=== PATIENT | female | born 2000 | race Caucasian/White ===

== ENCOUNTER 2024-01-22 23:09 | Emergency (ER) | payer OTHER, SELFPAY ==
[2024-01-22 23:49] VITALS: BP 111/63; PULSE 68; RESP 16; TEMP 36.7; O2SAT 97; BMI 22.7
[2024-01-23 02:19] VITALS: BP 129/72; PULSE 81; RESP 18; TEMP 36.8; O2SAT 99
--- NOTE | 2024-01-23 02:22 | PC.NURSE ---
pt is tearful but when she focuses she stops crying. pt has had this happen for 5 years every month she says she is in the ed. Pt is going for a 2nd consult. pt is bipolar and suffers from hormonal changes per pt.
[2024-01-23 02:25] VITALS: PULSE 81; TEMP 36.8; O2SAT 99
[2024-01-23 04:38] VITALS: BP 120/67; PULSE 82; RESP 19; TEMP 36.8; O2SAT 99
[2024-01-23 06:39] LABS: Hematocrit 40.4 % (37.0-47.0); Hemoglobin 14.7 g/dl (12.0-16.0); Mean Corpuscular HGB Conc 36.4 g/dl (31.0-35.0); Mean Corpuscular Hemoglobin 32.7 pg (27.0-33.0); Mean Platelet Volume 9.1 fL (9.4-12.3); Platelet Count 238 X10*3/uL (160-400); Red Blood Count 4.49 X10*6/uL (4.20-5.50); Red Cell Distribution Width 12.1 % (11.0-16.0); White Blood Count 8.9 X10*3/uL (4.8-10.8)
--- NOTE | 2024-01-23 06:39 | ED.GENADULT ---
HPI - General Adult General Chief complaint: Nausea/Vomiting/Diarrhea Stated complaint: flare up symptoms? Time Seen by Provider: 01/23/24 06:33 Source: patient Mode of arrival: ambulatory Limitations: no limitations History of Present Illness ED Provider: Mattie Howard PA-C HPI narrative: Patient is a 23 year old assigned female at with a history of anxiety presenting to the emergency department today with an anxiety flare. Patient states that she feels this way before her period starts and it is due in approximately 5 days. Patient states that haldol usually fixes this. Patient denies any dizziness, lightheadedness, abdominal pain, fever, chills, blurry vision, double vision, loss of vision, chest pain, difficulty breathing, shortness of breath, back pain, night sweats, pain with urination, increased urinary frequency, increased urinary urgency, blood in her urine or stool, syncope or a near syncopal episode, recent trauma or falls, bowel incontinence, bladder incontinence, or any other complaints at this time. Relieving factors: none Exacerbating factors: none Associated symptoms: nausea/vomiting Treatments prior to arrival: none Related Data Allergies Allergy/AdvReac Type Severity Reaction Status Date / Time No Known Allergies Allergy Verified 01/22/24 23:52 Review of Systems Constitutional: Constitutional: Reports no additional constitutional complaints, Denies chills, Denies fever(s) and Denies night sweats Eyes: Eyes: Reports no additional eye complaints, Denies blurry vision, Denies change in vision, Denies diplopia, Denies eye discharge, Denies loss of vision and Denies eye pain ENT: Denies dizziness Cardiovascular: Cardiovascular: Reports no additional cardiovascular complaints, Denies chest pain, Denies lightheadedness, Denies Loss of Consciousness and Denies dyspnea Respiratory: Respiratory: Reports no additional respiratory complaints and Denies dyspnea Gastrointestinal: Gastrointestinal: Reports no additional gastrointestinal complaints, Denies abdominal pain, Denies melena, Denies hematochezia, Denies change in bowel habits, Denies change in stool character, Reports nausea and Reports vomiting Genitourinary: Genitourinary: Denies hematuria, Denies urinary frequency, Denies dysuria, Denies urinary incontinence, Denies urinary hesitancy and Denies urinary urgency Musculoskeletal: Musculoskeletal: Reports no additional musculoskeletal complaints, Denies numbness and Denies tingling Neurologic: Denies dizziness, Denies loss of vision, Denies numbness and Denies tingling Psychiatric: Psychiatric: Reports anxiety Endocrine: Endocrine: Reports no additional endocrine complaints Hematologic/Lymphatic: Hematologic/Lymphatic: Reports no additional hematologic/lymphatic complaints Allergic/Immunologic: Allergic/Immunologic: Reports no additional allergic/immunologic complaints PMFSH Past Medical History Attestation statement: The following information was validated with the patient. Source: old records reviewed and nursing notes reviewed Social History Social History Advance Directives: No Advance Directives Information Provided: Yes Do you have a plan to hurt others: No Plan Physical Exam ED Vital Signs: Vital Signs - 24 hr 01/22/24 23:49 01/23/24 02:19 01/23/24 02:25 Temperature 98.1 F 98.3 F 98.3 F Pulse Rate 68 81 81 Respiratory Rate 16 18 Blood Pressure 111/63 129/72 Pulse Oximetry 97 99 99 Oxygen Delivery Method Room Air Room Air Room Air 01/23/24 04:38 01/23/24 06:55 01/23/24 08:15 Temperature 98.3 F 98.3 F Pulse Rate 82 99 63 Respiratory Rate 19 20 14 Blood Pressure 120/67 122/83 118/73 Pulse Oximetry 99 100 98 Oxygen Delivery Method Room Air Room Air Room Air 01/23/24 09:12 Temperature 98.3 F Pulse Rate 63 Respiratory Rate 16 Blood Pressure 118/73 Pulse Oximetry 99 Oxygen Delivery Method Room Air BMI result Body Mass Index 22.7 Const General: cooperative, no acute distress, alert and awake Nutritional Appearance: well nourished Orientation/consciousness: patient oriented x3 Limitations: no limitations [facility] Head: Yes normal to inspection and Yes atraumatic Ears: hearing grossly normal bilaterally and external ears normal General nose exam: Normal external nose present, no nasal discharge noted and no epistaxis Face and sinus: Yes normal facial exam, No abrasion and No laceration Mouth: Normal oral and palatal mucosa present, no drooling and no muffled voice Eyes General: appearance normal, both eyes and all related structures Periorbital: periorbital findings normal Eyelids: Yes eyelids normal Conjunctivae: conjunctivae normal Pupils: Equal, round and reactive pupils present EOM: EOMs intact bilaterally Neck Neck: Yes normal visual inspection, Yes full ROM and Yes no lymphadenopathy Chest Chest palpation & inspection: normal inspection of the chest Resp Effort & Inspection: normal respiratory effort and able to speak in complete sentences GI Inspection: Yes normal to inspection Neuro General: patient oriented x3 and moves all extremities Cranial nerves: Yes Equal, round and reactive pupils present Cognition (Neuro): normal cognition Extrem General: Yes normal to inspection, Yes full ROM and Yes capillary refill normal Psych Appearance: grossly normal Mental Status: mental status grossly normal Affect: normal affect Attitude: cooperative Thought process: Normal thought process present Thought content: Normal thought content present Insight: Good insight present (Psych) Medications Administered Discontinued Medications Generic Name Dose Route Start Last Admin Trade Name Freq PRN Reason Stop Dose Admin Haloperidol Lactate 5 mg 01/23/24 06:41 01/23/24 06:53 Haloperidol Lactate 5 Mg/Ml Vial IM 01/23/24 06:42 5 mg ONCE ONE Administration Sodium Chloride 1,000 mls @ 999 mls/hr 01/23/24 06:45 01/23/24 08:49 Ns IV 01/23/24 07:45 Infused .Q1H1M HAYDEE Infusion Medical Decision Making Medical Decision Making [facility] Narrative: Patient is a 23 year old assigned female at with a history of anxiety presenting to the emergency department today with increased anxiety, nausea, and vomiting. Patient's physical exam was unremarkable. Patient's blood work was unremarkable. Patient's urine showed no acute process. I explained my physical exam findings as well as all test results to the patient. I answered all questions asked by the patient. Patient received IV fluids and Haldol which she stated helped her symptoms significantly. I stressed the importance of the patient taking her medication as directed (either prescribed or as the over the counter packaging recommends). I stressed the importance of the patient following up with her primary care provider. I stressed the importance of the patient returning to the emergency department immediately if her symptoms were to worsen or if she were to develop any dizziness, shortness of breath, difficulty breathing, chest pain, blurry vision, loss of vision, nausea, vomiting, abdominal pain, fever, chills, back pain, or any other complaints. Patient verbalized agreement and understanding with this treatment plan and discharge. Differential Diagnosis Differential Diagnoses: The differential diagnosis associated with the presentation includes Anxiety Admission/Observation Consideration of admission/observation: Escalation of care including admission/observation considered Patient would have been admitted to the hospital had her work up had any findings where hospital admission was appropriate and her clinical presentation warranted hospital admission. Lab Data [facility] Lab Attestation statement: I reviewed the patient's lab results. My interpretation of these results are in the MDM Rationale portion of this note. 01/23/24 06:28 01/23/24 06:28 Labs: Lab Results 01/23/24 01/23/24 Range/Units 06:28 08:07 WBC 8.9 (4.8-10.8) X10*3/uL RBC 4.49 (4.20-5.50) X10*6/uL Hgb 14.7 (12.0-16.0) g/dl Hct 40.4 (37.0-47.0) % MCV 90.0 (80.0-98.0) fL MCH 32.7 (27.0-33.0) pg MCHC 36.4 H (31.0-35.0) g/dl RDW 12.1 (11.0-16.0) % Plt Count 238 (160-400) X10*3/uL MPV 9.1 L (9.4-12.3) fL Absolute Nucleated RBC 0.000 (0.0-0.012) X10*3/uL Nucleated RBC % (auto) 0.0 (0.0-0.2) /100WBC Sodium 139 (135-145) mmol/L Potassium 3.8 (3.3-5.1) mmol/L Chloride 107 (96-108) mmol/L Carbon Dioxide 22 (22-29) mmol/L Anion Gap 14 (12-20) BUN 7 L (9-16) mg/dL Creatinine 0.75 (0.5-1.4) mg/dL Estim Creat Clear Calc 98.9 Estimated GFR > 60 Random Glucose 118 H (60-115) mg/dL Calcium 9.6 (8.4-10.2) mg/dL Total Bilirubin 0.6 (0.0-1.0) mg/dL AST 18 (5-31) U/L ALT 16 (0-31) U/L Alkaline Phosphatase 77 (39-117) U/L Total Protein 7.4 (6.5-8.0) g/dL Albumin 4.4 (3.5-5.0) g/dL Lipase 17 (8-78) U/L Beta HCG, Quant < 2 mIU/mL Urine Color Yellow Urine Appearance Cloudy Urine pH 7.5 (5.0-9.0) Ur Specific [place] 1.025 (1.005-1.025) Urine Protein 30 (1+) H (Neg-Trace) mg/dL Urine Glucose (UA) Negative (Negative) mg/dL Urine Ketones 80 (Negative) mg/dL Urine Blood Trace H (Negative) Urine Nitrite Negative (Negative) Ur Leukocyte Esterase Negative (Negative) Urine RBC 11-20 H (0-2) /HPF Urine WBC 0-5 (0-5) /HPF Ur Squamous Epith Cells 0-2 (0-2) /HPF Urine Bacteria None Seen (None Seen) Hyaline Casts 0-2 (0-2) /LPF COVID-19 ([facility]) Negative (Negative) COVID-19 Clin Com See Note Influenza Type A (SHAHAB) Negative (Negative) Influenza Type B (SHAHAB) Negative (Negative) Influenza A & B Note See Note Discharge Plan Discharge Clinical Impression: Anxiety Patient Disposition: Home, Self-Care Instructions: Anxiety (ED) Additional Instructions: Follow up with your primary care provider. Return to the emergency department immediately if your symptoms worsen or if you develop any dizziness, shortness of breath, difficulty breathing, chest pain, blurry vision, loss of vision, nausea, vomiting, abdominal pain, fever, chills, back pain, or any other complaints. [facility] at [facility]: [address] [place] [address] [phone] Walk in hours from 10am - 12pm Open from 10am - 12pm [facility] Crisis Services: [address] [place] [address] Walk in hours from 10am - 12pm Open 04/02 [facility]al [facility] Network: [address] [place] [id number] [address] [place] [id number] Hours: M-F 8am to 8pm Saturday and Saturday 9am to 5pm Referrals: [facility] Family Medicine [Provider Group] [facility] Primary Maxwell Lopez [Provider Group] (Call to establish and follow up with a primary care provider. If you already have a primary care provider, please follow up with them.) [facility] Shashank Wayne [Provider Group] Stand Alone Forms: Work/School Release Interventions: ED Discharge Assessment Last Done: 01/23/24 09:12 Discharge Date/Time: 01/23/24 09:13 Print Language: Vietnamese
[2024-01-23 06:52] LABS: COVID-19 Test Negative (Negative); IDNOW Serial# 08D9AD1C; IDNOW Serial# 152EDE1D; Influenza A Negative (Negative); Influenza B2 Negative (Negative)
[2024-01-23] MEDS: 0.9 % Sodium Chloride 1,000 ML 999 ML IV (06:52)
[2024-01-23] MEDS: Haloperidol Lactate 5 MG/ML VIAL IM (06:53)
[2024-01-23 06:55] VITALS: BP 122/83; PULSE 99; RESP 20; O2SAT 100
[2024-01-23 07:11] LABS: HCG Quantitative < 2 mIU/mL
[2024-01-23 07:14] LABS: Alanine Aminotransferase 16 U/L (0-31); Albumin Level 4.4 g/dL (3.5-5.0); Alkaline Phosphatase 77 U/L (39-117); Aspartate Amino Transferase 18 U/L (5-31); Bilirubin Total 0.6 mg/dL (0.0-1.0); Blood Urea Nitrogen 7 mg/dL (9-16); Calcium 9.6 mg/dL (8.4-10.2); Carbon Dioxide 22 mmol/L (22-29); Chloride 107 mmol/L (96-108); Creatinine Clr Calc Pharmacy 98.9; Estimated Glomerular Filt Rate > 60; Glucose Random 118 mg/dL (60-115); Lipase 17 U/L (8-78); Potassium 3.8 mmol/L (3.3-5.1); Sodium 139 mmol/L (135-145); Total Protein 7.4 g/dL (6.5-8.0)
[2024-01-23 07:25] LABS: Anion Gap 14 (12-20)
[2024-01-23 08:15] VITALS: BP 118/73; PULSE 63; RESP 14; TEMP 36.8; O2SAT 98
[2024-01-23 08:17] LABS: Appearance Urine Cloudy; Color Urine Yellow; Glucose Urine UA Negative (Negative); Leukocyte Esterase Urine Negative (Negative); Nitrite Urine Negative (Negative); PH 7.5 (5.0-9.0); Specific Gravity - Urine 1.025 (1.005-1.025); UMIC TRIGGER UACC YES; Urine Blood Trace (Negative); Urine Ketones 80 mg/dL (Negative); Urine Protein 30 (1+) mg/dL (Neg-Trace)
[2024-01-23 08:22] LABS: Bacteria Urine None Seen (None Seen); Hyaline Casts Urine 0-2 /LPF (0-2); Squamous Epithelial Cell Urine 0-2 /HPF (0-2); WBC Urine 0-5 /HPF (0-5)
[2024-01-23 09:12] VITALS: BP 118/73; PULSE 63; RESP 16; TEMP 36.8; O2SAT 99
== END 2024-01-23 09:13 | disposition home or self-care (01) ==
PROVIDERS: Emergency Provider Emergency Medicine
DX: F41.9 Anxiety disorder, unspecified (principal); R11.2 Nausea with vomiting, unspecified; Z03.818 Encounter for observation for suspected exposure to other biological agents ruled out
CPT/HCPCS: 36415; 80053; 81001; 83690; 84702; 85027; 87502; 87635; 96360; 96361; 96372; 99284; 99285; J1630